=== PATIENT | female | born 2000 | race Caucasian/White ===

== ENCOUNTER 2022-08-09 16:19 | Outpatient (REF) | payer OTHER, SELFPAY ==
[2022-08-10 12:29] LABS: Ferritin* 24.4 ng/mL (6.24-137.0)
[2022-08-12 01:23] LABS: Tissue Transglut Ab IgA < 2 U/mL (0-3)
== END 2022-08-09 16:20 | disposition home or self-care (01) ==
LOC: NPINS 16:19
DX: R19.7 Diarrhea, unspecified (principal); Z86.2 Personal history of diseases of the blood and blood-forming organs and certain disorders involving the immune mechanism
CPT/HCPCS: 82728; 83516; 84443

== ENCOUNTER 2024-06-06 15:45 | Outpatient (RCR) | payer BC, SELFPAY | END 2024-08-13 15:23 | disposition home or self-care (01) | PROVIDERS: Visit Provider Family Medicine | DX: S13.4XXD Sprain of ligaments of cervical spine, subsequent encounter (principal); M54.9 Dorsalgia, unspecified; Z51.89 Encounter for other specified aftercare | CPT/HCPCS: 97110; 97140; 97161 ==